=== PATIENT | male | born 1980 ===

== ENCOUNTER 2017-12-22 01:44 | Emergency (ER) | payer BC ==
--- NOTE | 2017-12-22 02:05 | ED PDOC ---
- ECG O2 Sat by Pulse Oximetry: 99 Disposition - Disposition
--- NOTE | 2017-12-22 02:33 | ED PDOC ---
HPI: General Adult Time Seen by Provider: 12/22/17 01:54 Chief Complaint (Nursing): Anxiety Chief Complaint (Provider): Anxiety History Per: Patient History/Exam Limitations: no limitations Onset/Duration Of Symptoms: Hrs Current Symptoms Are (Timing): Still Present Additional Complaint(s): Elliott Ramírez is a 37 year old male with no past medical history who is presenting to the ED for evaluation of anxiety s/p vivid nightmare. Patient states that he awoke feeling anxious and was unable to return to sleep. He denies any auditory or visual hallucinations as well as homicidal or suicidal ideation. PMD: none provided Past Medical History Reviewed: Historical Data, Nursing Documentation, Vital Signs Vital Signs: Last Vital Signs Temp 99.9 F H 12/22/17 01:51 Pulse 74 12/22/17 01:51 Resp 18 12/22/17 01:51 BP 142/75 12/22/17 01:51 Pulse Ox 99 12/22/17 02:35 - Medical History PMH: No Chronic Diseases - Surgical History Surgical History: No Surg Hx - Family History Family History: States: Unknown Family Hx - Social History Current smoker - smoking cessation education provided: No Alcohol: None Drugs: Denies - Immunization History Hx Tetanus Toxoid Vaccination: No Hx Influenza Vaccination: No - Home Medications Home Medications: Ambulatory Orders Medication Instructions Recorded Dicyclomine [Bentyl] 10 mg PO QID PRN #8 cap 03/11/16 Ibuprofen [Motrin Tab] 600 mg PO Q6 PRN #15 tab 03/11/16 Loperamide [Imodium] 2 mg PO Q4 PRN #10 cap 03/11/16 Ibuprofen [Motrin] 600 mg PO TID #15 tab 06/06/16 diaZEpam [Valium] 5 mg PO TID #12 tab 06/06/16 traMADol/Acetaminophen [Ultracet 1 tab PO TID PRN #20 tab 06/06/16 37.5/325 mg] - Allergies Allergies/Adverse Reactions: Allergies Allergy/AdvReac Type Severity Reaction Status Date / Time No Known Allergies Allergy Verified 03/11/16 06:56 Review of Systems ROS Statement: Except As Marked, All Systems Reviewed And Found Negative Psych: Positive for: Anxiety. Negative for: Suicidal ideation ((-) homicidal ideation), Other (auditory or visual hallucinations) Physical Exam - Reviewed Nursing Documentation Reviewed: Yes Vital Signs Reviewed: Yes - Physical Exam Appears: Positive for: Non-toxic, No Acute Distress Head Exam: Positive for: ATRAUMATIC, NORMAL INSPECTION, NORMOCEPHALIC Skin: Positive for: Normal Color, Warm, DRY Eye Exam: Positive for: Normal appearance, EOMI, PERRL ENT: Positive for: Normal ENT Inspection Neck: Positive for: Normal Cardiovascular/Chest: Positive for: Regular Rate, Rhythm. Negative for: Murmur Respiratory: Positive for: Normal Breath Sounds. Negative for: Respiratory Distress Gastrointestinal/Abdominal: Positive for: Normal Exam Extremity: Positive for: Normal ROM. Negative for: Deformity Neurologic/Psych: Positive for: Alert, Oriented. Negative for: Motor/Sensory Deficits - ECG O2 Sat by Pulse Oximetry: 99 (RA) Pulse Ox Interpretation: Normal Medical Decision Making Medical Decision Making: Time: 2:02 Impression: 37 year old male with acute anxiety Plan: --EKG --Crisis Evaluation --Ativan 1 mg PO Patient was evaluated by crisis team. Upon provider evaluation, patient is stable for discharge home and was encouraged to seek outpatient follow up. Scribe Attestation: Documented by Soni Poole, acting as a scribe for Júnior Hinds MD. Provider Scribe Attestation: All medical record entries made by the Scribe were at my direction and personally dictated by me. I have reviewed the chart and agree that the record accurately reflects my personal performance of the history, physical exam, medical decision making, and the department course for this patient. I have also personally directed, reviewed, and agree with the discharge instructions and disposition. Disposition - Clinical Impression Clinical Impression: Anxiety - Patient ED Disposition Is Patient to be Admitted: No - Disposition Disposition: Routine/Home Disposition Time: 05:15 Condition: STABLE Instructions: Anxiety, Adult (DC) Forms: [employer] (Kyrgyz) Print Language: KINYARWANDA
[2017-12-22 05:15] VITALS: BP 126/86; PULSE 66; RESP 16; TEMP 98.1
[2017-12-22 05:17] VITALS: O2SAT 99
--- NOTE | 2017-12-22 08:53 | CARD ---
APPROVED REPORT Date of service: 12/22/2017 EKG Measurement Heart [id number] <Conclusion> Normal sinus rhythm Normal ECG
== END 2017-12-22 05:15 | disposition home or self-care (01) ==
LOC: H.ER 01:44
DX: F41.9 Anxiety disorder, unspecified (principal)